=== PATIENT | female | born 1950 | race Caucasian/White ===

== ENCOUNTER 2016-11-04 20:50 | Emergency (ER) | payer MEDICARE ==
[~2016-11-04] VITALS: Ht 157.5 cm; Wt 83.9 kg
[2016-11-04 22:40] VITALS: BP 159/90
== END 2016-11-04 22:42 | disposition home or self-care (01) ==
LOC: ED 22:06
DX: R51 Headache (principal); R50.9 Fever, unspecified; M79.1 Myalgia; Z90.49 Acquired absence of other specified parts of digestive tract
CPT/HCPCS: 99281